=== PATIENT | female | born 1970 | race African-American/Black ===

== ENCOUNTER 2023-05-04 18:51 | Emergency (ER) | payer MEDICARE ==
[~2023-05-04] VITALS: Ht 149.9 cm; Wt 40.4 kg
[2023-05-04 19:33] VITALS: O2SAT 98
[2023-05-04] MEDS ORDERED: OXYC-105 PO (19:50)
[2023-05-04 20:14] VITALS: BP 113/72; PULSE 93; RESP 16; TEMP 98.4
== END 2023-05-04 20:15 | disposition home or self-care (01) ==
LOC: ER 18:55
DX: M54.50 Low back pain, unspecified (principal); Z90.49 Acquired absence of other specified parts of digestive tract; Z90.710 Acquired absence of both cervix and uterus
CPT/HCPCS: 99283

== ENCOUNTER 2023-05-17 17:34 | Emergency (ER) | payer OTHER ==
[~2023-05-17] VITALS: Ht 157.5 cm; Wt 60.0 kg
[~2023-05-17 17:34] MED LIST: OXYC-105 PO
[2023-05-17 18:03] VITALS: TEMP 98.1; O2SAT 100
[2023-05-17 19:30] VITALS: BP 129/89; PULSE 105; RESP 16
[2023-05-17] MEDS ORDERED: DEXAMETHASONE 4MG TABLET PO ONE (19:30)
[2023-05-17] MEDS ORDERED: KETOROLAC 60MG/2ML VIAL IM ONE (19:30)
[2023-05-17] MEDS ORDERED: CYCL10TA21 MT (19:54)
[2023-05-17] MEDS ORDERED: IBUP-2029 MT (19:54)
[2023-05-17] MEDS ORDERED: DEXAMETHASONE 6MG TABLET PO NR (20:00)
== END 2023-05-17 20:00 | disposition home or self-care (01) ==
LOC: ER 17:34
DX: M54.50 Low back pain, unspecified (principal); Z90.49 Acquired absence of other specified parts of digestive tract; Z90.710 Acquired absence of both cervix and uterus
CPT/HCPCS: 99285; 72131; 96372; J1885; J8540

== ENCOUNTER 2023-06-15 22:32 | Emergency (ER) | payer OTHER ==
[~2023-06-15] VITALS: Ht 167.6 cm; Wt 55.0 kg
[~2023-06-15 22:32] MED LIST changes: +CYCL10TA21 MT; +IBUP-2029 MT
[2023-06-15 22:36] VITALS: O2SAT 99
[2023-06-15] MEDS ORDERED: IBUPROFEN 400MG TABLET PO ONE (23:15)
[2023-06-15] MEDS ORDERED: TETANUS, DIPHTHERIA, PERTUSSIS VAC/PF 0.5ML (>10YR OLD) IM ONE (23:15)
[2023-06-15] MEDS ORDERED: LIDOCAINE HCL/PF 1% 10 MG/ML 5ML VIAL INFIL ONE (23:30)
[2023-06-15] MEDS ORDERED: LIDOCAINE HCL/EPINEPHRINE 1%-EPI 1:100,000 20 ML VIAL INFIL ONE (23:30)
[2023-06-16] MEDS ORDERED: IBUP-2028 MT (01:26)
[2023-06-16 01:55] VITALS: BP 130/90; PULSE 100; RESP 18; TEMP 97.8
== END 2023-06-16 02:07 | disposition home or self-care (01) ==
LOC: ER 22:32
DX: S01.01XA Laceration without foreign body of scalp, initial encounter (principal); I10 Essential (primary) hypertension; R51.9 Headache, unspecified; Z90.49 Acquired absence of other specified parts of digestive tract; Z90.710 Acquired absence of both cervix and uterus; Y08.89XA Assault by other specified means, initial encounter; Y93.89 Activity, other specified; Y92.89 Other specified places as the place of occurrence of the external cause; Y99.8 Other external cause status
CPT/HCPCS: 99285; 73502; 71101; 90715; 12001; 70450; 70486; 90471; J3490 ×2

== ENCOUNTER 2023-10-21 04:27 | Emergency (ER) | payer BC, OTHER ==
[~2023-10-21] VITALS: Ht 149.9 cm; Wt 46.0 kg
[~2023-10-21 04:27] MED LIST changes: +IBUP-2028 MT
[2023-10-21 04:45] VITALS: BP 98/71; PULSE 108; RESP 18; TEMP 98; O2SAT 100
== END 2023-10-21 06:28 | disposition left against medical advice (07) ==
LOC: ER 04:27
DX: R21 Rash and other nonspecific skin eruption (principal); Z53.21 Procedure and treatment not carried out due to patient leaving prior to being seen by health care provider
CPT/HCPCS: 99281

== ENCOUNTER 2024-11-02 07:57 | Emergency (ER) | payer BC, MEDICAID ==
[~2024-11-02] VITALS: Ht 149.9 cm; Wt 43.2 kg
[2024-11-02 08:16] VITALS: TEMP 36.8; O2SAT 100
[2024-11-02 09:47] LABS: BASOPHILS % 1.1 % (0.0-2.0); DIFFERENTIAL COMMENT 0; EOSINOPHILS % 2.9 % (0.0-5.0); HEMATOCRIT. 42.2 % (36.0-48.0); HEMOGLOBIN. 13.5 g/dL (12.0-16.0); LYMPHOCYTES % 33.4 % (20.0-50.0); MEAN CORPUSCULAR HEMOGLOBIN 32.9 pg (28.0-32.0); MEAN CORPUSCULAR VOLUME 102.7 fL (81.0-99.0); MEAN PLATELET VOLUME 7.5 fl (7.4-10.4); MONOCYTES % 9.1 % (2.0-8.0); NEUTROPHILS % 53.5 % (40.0-76.0); PLATELET 317 x1000/uL (130-400); RED BLOOD CELL COUNT 4.11 mill/uL (4.2-5.4); RED CELL DISTRIBUTION WIDTH 13.5 % (11.6-14.6); WHITE BLOOD COUNT 5.3 x1000/uL (4.5-11.0)
[2024-11-02 09:56] LABS: CARBON DIOXIDE 26 mEq/L (21-32); CHLORIDE 106 mEq/L (98-107); PROTHROMBIN TIME 10.3 sec (9.6-11.0); SODIUM 139 mEq/L (136-145)
[2024-11-02 09:57] LABS: CALCIUM 9.6 mg/dL (8.7-10.4)
[2024-11-02] MEDS: HYDROCODONE/ACETAMINOPHEN 5/325MG TABLET PO ONE (09:59)
[2024-11-02 10:02] LABS: CREATININE 0.9 mg/dL (0.6-1.0); GLUCOSE 78 mg/dL (70-105); UREA NITROGEN BLOOD 10 mg/dL (9-23)
[2024-11-02 10:03] LABS: ALANINE AMINOTRANSFERASE 10 IU/L (10-49)
[2024-11-02 10:04] LABS: ALBUMIN 4.8 g/dL (3.2-4.8); ASPARTATE AMINOTRANSFERASE 19 IU/L (<34); BILIRUBIN DIRECT < 0.1 mg/dL (<=3.0); BILIRUBIN TOTAL 0.3 mg/dL (0.1-1.0)
[2024-11-02 10:09] LABS: HCG SCREEN NEGATIVE
[2024-11-02] MEDS ORDERED: DOXY-244 MT (11:28)
[2024-11-02] MEDS ORDERED: IBUP-2029 MT (11:28)
[2024-11-02] MEDS ORDERED: HYDR30CR80 TP (11:28)
[2024-11-02] MEDS: CEFTRIAXONE SODIUM 500MG VIAL IV ONE (11:30)
[2024-11-02 11:42] LABS: CLARITY URINE CLEAR (CLEAR); COLOR URINE YELLOW (YELLOW); GLUCOSE URINE NEGATIVE (NEGATIVE); KETONES URINE NEGATIVE (NEGATIVE); LEUKOCYTE ESTERASE URINE NEGATIVE (NEGATIVE); NITRITE URINE NEGATIVE (NEGATIVE); OCCULT BLOOD URINE NEGATIVE (NEGATIVE); PH URINE 5.5 (4.5-8.0); PROTEIN URINE NEGATIVE (NEGATIVE); SPECIFIC GRAVITY URINE 1.009 (1.005-1.030); UROBILINOGEN URINE 0.2 E.U./dL (0.2-1.0)
[2024-11-02] MEDS: CEFTRIAXONE SODIUM 500MG VIAL IM ONE (11:48)
[2024-11-02 11:53] VITALS: BP 125/74; PULSE 82; RESP 18; O2SAT 100
[2024-11-02] MEDS ORDERED: IOHEXOL-350 100 ML BOTTLE ONE (15:07)
== END 2024-11-02 11:54 | disposition home or self-care (01) ==
LOC: ER 07:57 → CANBEDREQ 11:30 → ER 11:54
DX: K62.89 Other specified diseases of anus and rectum (principal); Z79.899 Other long term (current) drug therapy; Z98.890 Other specified postprocedural states; Z90.710 Acquired absence of both cervix and uterus; Z90.49 Acquired absence of other specified parts of digestive tract
CPT/HCPCS: 99285; 74177; 80076; 80048; 81003; 84703; 83605; 83690; 85025; 85610; 87040; 36415; 96372; Q9967; J0696